=== PATIENT | female | born 1955 | race Caucasian/White ===

== ENCOUNTER 2020-08-16 07:27 | Outpatient (REF) | payer OTHER, SELFPAY ==
[2020-08-16 11:51] LABS: Alanine Aminotransferase 22 U/L (0-31); Aspartate Amino Transferase 18 U/L (5-31); Cholesterol 252 mg/dL; HDL Cholesterol 50 mg/dL; LDL Cholesterol Calculated 160 mg/dl; Triglycerides 213 mg/dL
[2020-08-16 12:16] LABS: Vitamin D 25-OH Total 78.1 ng/mL (>30)
== END 2020-08-16 07:28 | disposition home or self-care (01) ==
LOC: HO.HMGCLDS 07:27
PROVIDERS: PCP Internal Medicine; Visit Provider Internal Medicine
DX: E78.2 Mixed hyperlipidemia (principal); M85.852 Other specified disorders of bone density and structure, left thigh; E55.9 Vitamin D deficiency, unspecified; Z78.0 Asymptomatic menopausal state
CPT/HCPCS: 36415; 80061; 82306; 84450; 84460

== ENCOUNTER 2020-09-04 | Outpatient (REF) | payer OTHER, SELFPAY ==
[2020-09-05 16:13] LABS: CT PCR NOT DETECTED (Not Detect.); NG PCR NOT DETECTED (Not Detect.)
[2020-09-06 09:04] LABS: BV Int Neg Control Negative (Negative); BV Int Pos Control Positive (Positive)
== END 2020-09-04 00:01 | disposition home or self-care (01) ==
LOC: HO.LNP
PROVIDERS: Visit Provider Internal Medicine
DX: N39.0 Urinary tract infection, site not specified (principal); N76.0 Acute vaginitis; E89.40 Asymptomatic postprocedural ovarian failure
CPT/HCPCS: 87086; 87480; 87491; 87510; 87591; 87660

== ENCOUNTER 2020-10-16 09:36 | Outpatient (REF) | payer OTHER, SELFPAY ==
[2020-10-17 11:07] LABS: BV Int Neg Control Negative (Negative); BV Int Pos Control Positive (Positive)
== END 2020-10-16 09:37 | disposition home or self-care (01) ==
LOC: HO.LAB 09:36
PROVIDERS: PCP Internal Medicine; Visit Provider Obstetrics & Gynecology
DX: N89.8 Other specified noninflammatory disorders of vagina (principal); N95.8 Other specified menopausal and perimenopausal disorders
CPT/HCPCS: 87480; 87510; 87660

== ENCOUNTER 2025-04-25 10:01 | Outpatient (REF) | payer OTHER, SELFPAY ==
[2025-04-25 12:51] LABS: MANUAL DIFF FLAG NO
[2025-04-25 13:07] LABS: Hematocrit 41.1 % (37.0-47.0); Hemoglobin 13.7 g/dl (12.0-16.0); Imm Gran Abs Auto 0.02 X10*3/uL (0.00-0.03); Imm Gran Pct Auto 0.5 % (0.0-0.4); Lymphocytes Absolute Auto 0.8 X10*3/uL (1.2-4.9); Mean Corpuscular HGB Conc 33.3 g/dl (31.0-35.0); Mean Corpuscular Hemoglobin 29.0 pg (27.0-33.0); Mean Corpuscular Volume 87.1 fL (80.0-98.0); NRBC Abs Auto 0.000 X10*3/uL (0.0-0.012); NRBC Pct Auto 0.0 /100WBC (0.0-0.2); Platelet Count 165 X10*3/uL (160-400); Red Blood Count 4.72 X10*6/uL (4.20-5.50); White Blood Count 3.9 X10*3/uL (4.8-10.8)
[2025-04-25 13:32] LABS: Alanine Aminotransferase 23 U/L (0-31); Albumin Level 5.0 g/dL (3.5-5.0); Alkaline Phosphatase 76 U/L (39-117); Anion Gap 12 (12-20); Aspartate Amino Transferase 24 U/L (5-31); Blood Urea Nitrogen 11 mg/dL (9-16); Calcium 9.6 mg/dL (8.4-10.2); Carbon Dioxide 26 mmol/L (22-29); Chloride 107 mmol/L (96-108); Cholesterol 217 mg/dL (<200); Estimated Glomerular Filt Rate > 60; HDL Cholesterol 50 mg/dL (>40); Potassium 4.3 mmol/L (3.3-5.1); Sodium 141 mmol/L (135-145); Total Protein 6.6 g/dL (6.5-8.0); Triglycerides 134 mg/dL (<150)
[2025-04-25 13:52] LABS: Folate 9.4 ng/mL (> or = 4.0); Vitamin B12 332 pg/mL (200-900)
== END 2025-04-25 10:02 | disposition home or self-care (01) ==
LOC: HO.HMGCLDS 10:01
PROVIDERS: PCP Internal Medicine; Visit Provider Internal Medicine
DX: Z00.01 Encounter for general adult medical examination with abnormal findings (principal); E78.2 Mixed hyperlipidemia; E55.9 Vitamin D deficiency, unspecified; E89.40 Asymptomatic postprocedural ovarian failure; N95.2 Postmenopausal atrophic vaginitis; M85.852 Other specified disorders of bone density and structure, left thigh; E78.00 Pure hypercholesterolemia, unspecified; R53.82 Chronic fatigue, unspecified; Z71.89 Other specified counseling; F43.21 Adjustment disorder with depressed mood; Z63.4 Disappearance and death of family member; Z13.1 Encounter for screening for diabetes mellitus
CPT/HCPCS: 36415; 80053; 80061; 82306; 82607; 82746; 84443; 85025; 96127

== ENCOUNTER 2025-04-25 10:01 | Outpatient (AMB) | payer OTHER, SELFPAY ==
--- OUTSIDE RECORDS SUMMARY | 2025-03-15 04:15 | XMS_ITS ---
Author Organization [facility] Address [address] [place] [address] Care Team Providers Care Timing Inspector Name Role Phone Kiarra MARQUEZ, Renee Sharma Primary Care Provider Un available Black, Analia Unavailable [phone] Celia Montoya Unavailable [phone] Sarkar Encounters Encounter Location Date Provider Diagnosis [facility] [address] [place] [address] 03/15/2025 Celia Montoya Plan Of Treatment No Information Progress Notes * Nela HERNANDEZ MDOB: (70 yo F)Acc No.[id number]:03/15/2025 Progress Note Patient: Nela BELTRAN Provider: Franny Montoya DPM :1955 A ge:69 Y S ex:Female Date:03/15/2025 Address:[address] [place], [place] [id number] Pcp:Terese Rehman Subjective: * Chief Complaints: * [address] Sarkar. * Medical History: Objective: * Vitals: Assessment: Plan: * Treatment: * Images: * The named appointment provid er may or may not be the originator of this progress note, and it is not deemed complete until electronically signed by the appointment provider. Sign off status: Pending * Provider: Franny Montoya DPM Date: 1 Generated for Savanah méndez/Brad/Maddy on: 06/25/2024 11:27 AM EST
--- OUTSIDE RECORDS SUMMARY | 2025-04-05 04:30 | XMS_ITS ---
Author Organization [facility] Address [address] [place] [address] Care Team Providers Care Car Wrecker Name Role Phone Kiarar MARQUEZ, Renee Sharma Primary Care Provider Un available Black, Analia Unavailable [phone] Celia Montoya [phone] Encounters Encounter Location Date Provider Diagnosis [address] [address] 04/05/2025 Celia Montoya Plan Of Treatment No Information Progress Notes * Nela HERNANDEZ MDOB: (70 yo F)Acc No.[id number]:04/05/2025 Progress Note Patient: Laurence BELTRANela Terese Provider: Franny Montoya DPM :1955 A ge:69 Y S ex:Female Date:04/05/2025 Address:[address] [place], [place] [id number] Pcp:Terese Rehman Subjective: * Chief Complaints: * * Medical History: Objective: * Vitals: Assessment: Plan: * Treatment: * Images: * The named appointment provid er may or may not be the originator of this progress note, and it is not deemed complete until electronically signed by the appointment provider. Sign off status: Pending * Provider: Franny Montoya DPM Date: Generated for Delanoi dev/Brad/eTransmitting on: 06/25/2024 11:27 AM EST
--- NOTE | 2025-04-25 10:40 | A.OFFPC_ITS ---
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 Intake Note: Pt is here today to re-establish care/PE Pin Ticket Machine Operator Required: No Allergies Sulfa (Sulfonamide Antibiotics) (SULFA (SULFONAMIDE ANTIBIOTICS)) Allergy (Unknown, Verified 04/25/25 11:01) RASH ENVIRONMENTAL Allergy (Unknown, Uncoded 04/25/25 11:01) SINUS PROBLEMS Medication List - Last Reconciled 04/25/25 by Renee Plunkett MD No Known Home Meds Tobacco use date assessed: 04/25/25 Fall risk assessment: No Falls in past year Last assessed Fall Risk: 04/25/25 Dental Screening Dental Screen Date: 04/25/25 Did you have a dental visit in the last 12 months?: Yes Did you have a dental problem in the last 6 months where you did not have access to dental care?: No Was dental information given to patient?: Patient has dentist HPI 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 She has past medical history significant for mixed dyslipidemia and osteopenia of left femoral neck. The patient has a history of surgical menopause following a hysterectomy for endometriosis at age 29. She took Premarin for at least three years, but it was discontinued by a previous provider due to concerns about breast cancer risk. She now experiences significant vaginal dryness and discomfort, which has prevented intercourse since her surgery. She was previously prescribed a vaginal cream but found it painful to apply and has not been using it. She occasionally experiences hot flashes, but they are no longer a significant issue. The patient is due for several health screenings, including a mammogram, bone density scan, and colon cancer screening, all of which were last performed before the pandemic. Her last mammogram, over five years ago, found a benign mass. A previous bone density scan revealed osteopenia in her left hip. Her last colonoscopy was a long time ago, and the result was normal , per patient. Past medical history includes hypercholesterolemia noted on labs from 2020, though she is no longer taking cholesterol medication. She underwent sacrcolpopexy with Dr. Ricky Aceves at [facility] in October 2021. Family history is notable for diabetes in a maternal aunt. There is no immediate family history of colon cancer. Regarding social history, the patient suffered the loss of her only daughter, age 45, in December of this year. Her daughter, who had bipolar disorder, suddenly. The patient reports she is trying to deal with the grief and has been taking care of her 20-year-old granddaughter who now lives with her. [facility] Medical History (Updated 04/25/25 @ 11:08 by Renee Plunkett MD) Postmenopausal syndrome Genitourinary syndrome of menopause History of vitamin D deficiency Surgical menopause H/O bone density study Vitamin D deficiency Menopause Osteopenia of left femoral neck Mixed dyslipidemia Surgical History History of sacrocolpopexy History of total hysterectomy History of tonsillectomy History of laparoscopic cholecystectomy History of lumpectomy of right breast History of ankle surgery History of colonoscopy Family History Father History of thyroid cancer Cancer of prostate Hyperlipidemia Mother Depression HTN (hypertension) Hx of CABG Myocardial infarction Mental health disorder Daughter Mental health disorder Social History Housing: House Alcohol intake: never Patient Tobacco Use Status: Never used Tobacco e-Cigarette/Vaping Use: Never Used service: No Current occupational status: retired Sexual orientation: Straight/Heterosexual Gender identity: Female Cognitive needs: No Hearing needs: No Vision needs: Yes Female Reproductive History Menstrual Age of Menarche: 13 Menopause type: surgical Questionnaire PHQ-9 Over the last 2 weeks, how often have you been bothered by any of the following problems? 1. Little interest or pleasure in doing things: not at all 2. Feeling down, depressed, or hopeless: not at all 3. Trouble falling or staying asleep, or sleeping too much: several days 4. Feeling tired or having little energy: several days 5. Poor appetite or overeating: several days 6. Feeling bad about yourself - or that you are a failure or have let yourself or your family down: not at all 7. Trouble concentrating on things, such as reading the newspaper or watching television: not at all 8. Moving or speaking so slowly that other people could have noticed. Or the opposite - being so fidgety or restless that you have been moving around a lot more than usual: several days 9. Thoughts that you would be better off or of hurting yourself in some way: not at all Total score: 4 Depression Screening Interpretation: Negative Depression Screening Done: Yes 65942 - PHQ-9 Billing: Yes Source: Developed by Drs. Jomar Oscar, Janna Hines, Donavan Hernandez and colleagues, with an educational bryce from [employer]. Thrive Questionnaire Date Thrive assessed: 04/18/25 I am a: Patient What is your living situation today?: I have a steady place to live Within the past 12 months, did the food you bought not last and you didn't have the money to get more?: Never true Within the past 12 months, did you worry whether your food would run out before you got money to buy more?: Never true Do you have trouble paying for medicines?: No Do you have trouble getting transportation to medical appointments?: No Do you have trouble paying your heating and electricity bill?: No Do you have trouble taking care of your child, family member or friend?: No Do you have trouble with day-to-day activities such as bathing, preparing meals, shopping, managing finances, etc.?: No Are you currently unemployed and looking for a job?: No Are you interested in more education?: No Please select the resources that you would like help with: None Currently or been in a relationship where the following occur: No concerns reported THRIVE Score: 0 AUDIT C Alcohol Use Questionnaire (AUDIT-C) 1. How often do you have a drink containing alcohol?: Never Total Score: 0 Score Reviewed/Action Taken: Yes AALIYAH-7 AMB Questionnaire AALIYAH-7 Date AALIYAH - 7 assessed: 04/25/25 Feeling nervous, anxious, or on edge: 1 = Several days Not being able to stop or control worryin = Several days Worrying too much about different things: 1 = Several days Trouble relaxin = Not at all Being so restless that it is hard to sit still: 0 = Not at all Becoming easily annoyed or irritable: 0 = Not at all Feeling afraid as if something awful might happen: 1 = Several days Total AALIYAH-7 score (0-4 normal; 5-9 mild; 10-14 moderate; 15-21 severe): 4 Source: Developed by Drs. Jomar Oscar, Janna Hines, Donavan Hernandez and colleagues, with an educational bryce from [employer]. AALIYAH-7 Assessment Billing AALIYAH-7 Assessment Tool: AALIYAH-7 Assessment 31791 Review of Systems Const Denies body aches, Denies fever(s) and Denies headache(s) Eyes Details: sees [facility] Details: Goes to [facility] dental Denies dizziness and Denies headache(s) Card Denies chest pain, Denies lightheadedness, Denies palpitations and Denies dyspnea Resp Denies chest congestion, Denies cough, Denies dyspnea and Denies wheezing GI Denies abdominal pain, Denies change in bowel habits and Denies heartburn Denies urinary frequency, Denies difficulty voiding, Reports sexual dysfunction (Loss of libido) and Reports vaginal dryness Musc Denies myalgias, Denies arthralgias and Denies limited range of motion Skin/Breast Denies lesions and Denies rash Neuro Denies dizziness and Denies headache(s) Psych Reports no additional complaints Endo Denies palpitations Angel/Lymph Reports no additional complaints Aller/Immun Denies wheezing Physical exam (Primary Care) Vital Signs: Last Vital Signs Temp 98.1 F 04/25/25 10:41 Pulse 78 04/25/25 10:41 Resp 16 04/25/25 10:41 BP 130/80 04/25/25 10:41 Pulse Ox 98 04/25/25 10:41 Oxygen Delivery Method Room Air 04/25/25 10:41 BMI result Body Mass Index 27.1 Tobacco/Smoking Status: Tobacco use Status Tobacco use date assessed 04/25/25 04/25/25 10:50 Patient Tobacco Use Status Never used Tobacco 04/25/25 10:50 e-Cigarette/Vaping Use Never Used 04/25/25 10:50 PHQ-9: PHQ-9 Score PHQ-9: Total score 4 04/30/25 22:22 Depression Screening Interpretation: Negative Thrive Assessment: Date of Thrive Assessment Date Thrive assessed 04/18/25 04/25/25 10:42 Currently or been in a relationship where the following occur: No concerns reported Advance Care Planning discussion: Completed/Scanned Date of discussion: 04/25/25 Who was present: patient Forms completed: Health Care Proxy Time spent: 16-45 minutes Actual minutes spent: 2 Const General: no acute distress and alert Orientation/consciousness: patient oriented x3 [facility] Head: Yes normocephalic Ears: external ears normal, TM's normal bilaterally and EAC's normal General nose exam: Normal external nose present Face and sinus: Yes face symmetric Mouth: Normal oral and palatal mucosa present and moist mucous membranes Eyes General: appearance normal, both eyes and all related structures Eyelids: Yes eyelids normal Conjunctivae: conjunctivae normal Sclerae: sclerae normal Pupils: Equal, round and reactive pupils present EOM: EOMs intact bilaterally Neck Neck: Yes full ROM, Yes no lymphadenopathy and Yes supple Thyroid: Thyroid normal Chest Chest palpation & inspection: normal inspection of the chest Breast/axilla palpation: normal palpation of the breasts Resp Effort & Inspection: normal respiratory effort and able to speak in complete s entences Auscultation: clear to auscultation bilaterally Cardio Rate: regular rate Rhythm: regular rhythm Heart sounds: S1 normal heart sound present and S2 normal heart sound present GI Palpation (GI): Soft to palpation, nontender, no guarding and no masses Auscultation: normal bowel sounds General: Yes no CVA tenderness Back/Spine/Pelvis Back: no CVA tenderness and No back tenderness Skin General skin exam: no rashes or lesions noted Neuro General: patient oriented x3, gait normal, moves all extremities, Normal light touch and pain sensation and no focal motor deficits Cranial nerves: Yes Equal, round and reactive pupils present Cognition (Neuro): normal cognition Gait exam (Neuro): Normal gait present Motor exam (neuro): 5/5 motor strength present throughout Extrem General: Yes normal to inspection, Yes full ROM, Yes no joint enlargement, Yes no pedal edema and Yes normal gait Psych Appearance: grossly normal and well kempt Mental Status: mental status grossly normal Speech and movement: Normal speech and movement present Affect: normal affect Coding Level of Care Code Est Pt Prev Care >65y(54441) Diagnoses Annual visit for general adult medical examination with abnormal findings Z00.01 Osteopenia of left femoral neck M85.852 Postmenopausal atrophic vaginitis N95.2 Mixed dyslipidemia E78.2 Chronic fatigue R53.82 Fatigue type: chronic, unspecified Advance directive discussed with patient Z71.89 Grief at loss of child F43.21; Z63.4 Additional Codes AALIYAH-7 Assessment Billing - AALIYAH-7 Assessment Tool: AALIYAH-7 Assessment 25706 ([id number]) PHQ-9 - 70872 - PHQ-9 Billing: Yes ([id number]) Vital Signs *Quality* - Advance Care Planning discussion: Completed/Scanned ([id number]) Vital Signs *Quality* - Time spent: 16-45 minutes ([id number]) Assessment & Plan Assessment & Plan (1) Annual visit for general adult medical examination with abnormal findings: Code(s): Z00.01 - Encounter for general adult medical examination with abnormal findings Plan: She is overdue for multiple screenings. Breast Cancer Screening: A mammogram has been ordered. The patient was advised to schedule it at either [facility] or [facility], depending on insurance coverage, and to avoid deodorant on the day of the exam. Osteoporosis Screening: A bone density scan (DEXA) has been ordered to be performed at the same time as the mammogram to re-evaluate her known osteopenia of the left hip. Colon Cancer Screening: As her last colonoscopy was a long time ago, a Cologuard test has been ordered. The patient was instructed on the collection process and informed that a positive result would necessitate a follow-up colonoscopy. Immunizations: The patient has a history of the old pneumonia shot. She was administered Prevnar 20 in-office today due to her susceptibility to pneumonia. The flu shot was recommended, given at pharmacy Vision/Dental/Skin: Recommended a comprehensive dilated eye exam with an sap crm developer for reading and night vision issues. Recommended a skin cancer screening with a body shop supervisor. Patient confirms she sees a dentist regularly. (2) Osteopenia of left femoral neck: Code(s): M85.852 - Other specified disorders of bone density and structure, left thigh Category: Medical Plan: Bone Density scan ordered. Reinforced importance of doing regular weight- bearing exercise, take adequate calcium from dietary sources and start taking [id number] vitamin D3 at 2000 units daily. Vitamin-D level also ordered (3) Postmenopausal atrophic vaginitis: Code(s): N95.2 - Postmenopausal atrophic vaginitis Plan: reports severe vaginal dryness and dyspareunia. She had a hysterectomy at age 29. Previous use of a vaginal cream was unsuccessful due to pain on application. Given her age and history of a breast mass, systemic hormone therapy is not recommended at this time. A referral has been sent to [facility] PERFECT BINDER FEEDER OFFBEARER at the [facility] for further evaluation and management. The patient was advised to confirm her insurance coverage with [employer] [facility] for this referral. (4) Mixed dyslipidemia: Code(s): E78.2 - Mixed hyperlipidemia Category: Medical Plan: has a history of high cholesterol but is, currently not on medication. A lipid panel is included in today's blood work to re-evaluate her status and determine the need for pharmacotherapy. (5) Fatigue: Code(s): R53.83 - Other fatigue Qualifiers: Fatigue type: chronic, unspecified Qualified Code(s): R53.82 - Chronic fatigue, unspecified Plan: The patient reports significant fatigue. The differential includes anemia, thyroid dysfunction, and vitamin deficiencies. Plan to order comprehensive blood work including a CBC, TSH, vitamin B12, and vitamin D levels to investigate potential underlying causes. (6) Advance directive discussed with patient: Code(s): Z71.89 - Other specified counseling Plan: Initiated the conversation about Advanced Directives. Advanced Directives help patients prepare for current and future decisions about their medical treatment and place of care. Discussed with patient that it is a process where a patients current condition and prognosis are reviewed, their wishes for information regarding their illness are elicited, and likely medical dilemmas are presented and options discussed. Healthcare proxy form completed today. The form can be amended as needed, reviewed yearly and make changes as needed (7) Grief at loss of child: Code(s): F43.21 - Adjustment disorder with depressed mood; Z63.4 - Disappearance and of family member Plan: The patient recently experienced the sudden of her adult daughter. She is coping and denies needing therapy at this time. Offered support and resources if she changes her mind. Orders: Orders XR DEXA axial skeleton 04/25/25 E89.40 - Asymptomatic postprocedural ovarian failure, M85.852 - Other specified disorders of bone density and structure, left thigh, Z12.31 - Encounter for screening mammogram for malignant neoplasm of breast MM tomosynthesis screening BI 04/25/25 E89.40 - Asymptomatic postprocedural ovarian failure, M85.852 - Other specified disorders of bone density and structure, left thigh, Z12.31 - Encounter for screening mammogram for malignant neoplasm of breast Lipid Panel 04/25/25 E55.9 - Vitamin D deficiency, unspecified, E78.2 - Mixed hyperlipidemia, E89.40 - Asymptomatic postprocedural ovarian failure, M85.852 - Other specified disorders of bone density and structure, left thigh, R53.83 - Other fatigue, Z13.1 - Encounter for screening for diabetes mellitus Complete Blood Count Auto Diff 04/25/25 E55.9 - Vitamin D deficiency, unspecified, E78.2 - Mixed hyperlipidemia, E89.40 - Asymptomatic postprocedural ovarian failure, M85.852 - Other specified disorders of bone density and structure, left thigh, R53.83 - Other fatigue, Z13.1 - Encounter for screening for diabetes mellitus TSH reflex Free T4 04/25/25 E55.9 - Vitamin D deficiency, unspecified, E78.2 - Mixed hyperlipidemia, E89.40 - Asymptomatic postprocedural ovarian failure, M85.852 - Other specified disorders of bone density and structure, left thigh, R53.83 - Other fatigue, Z13.1 - Encounter for screening for diabetes mellitus Comprehensive [place]. Panel Fast 04/25/25 E55.9 - Vitamin D deficiency, unspecified, E78.2 - Mixed hyperlipidemia, E89.40 - Asymptomatic postprocedural ovarian failure, M85.852 - Other specified disorders of bone density and structure, left thigh, R53.83 - Other fatigue, Z13.1 - Encounter for screening for diabetes mellitus Vitamin B12 and Folate 04/25/25 E55.9 - Vitamin D deficiency, unspecified, E78.2 - Mixed hyperlipidemia, E89.40 - Asymptomatic postprocedural ovarian failure, M85.852 - Other specified disorders of bone density and structure, left thigh, R53.83 - Other fatigue, Z13.1 - Encounter for screening for diabetes mellitus Vitamin D 25-OH Total 04/25/25 E55.9 - Vitamin D deficiency, unspecified, E78.2 - Mixed hyperlipidemia, E89.40 - Asymptomatic postprocedural ovarian failure, M85.852 - Other specified disorders of bone density and structure, left thigh, R53.83 - Other fatigue, Z13.1 - Encounter for screening for diabetes mellitus Referrals PERFECT BINDER FEEDER OFFBEARER Referral E89.40 - Asymptomatic postprocedural ovarian failure, N95.2 - Postmenopausal atrophic vaginitis Cologuard Test Z12.11 - Encounter for screening for malignant neoplasm of colon, Z12.12 - Encounter for screening for malignant neoplasm of rectum
[2025-04-25 10:41] VITALS: BP 130/80; PULSE 78; RESP 16; TEMP 36.7; O2SAT 98; BMI 27.1
--- OUTSIDE RECORDS SUMMARY | 2025-04-25 11:27 | XMS_ITS | Patient Health Record ---
[facility] Address [address] [facility] [place] [address] Care Team Providers Care Bus Mechanic Name Role Phone Kiarra MARQUEZ, Renee Sharma Primary Care Provider Un available Analia Banda Unavailable [phone] Celia Montoya Unavailable [phone] Allergies Allergen (clinical drug ingredient) Drug/Non Drug Allergy documented on EMR Reaction Allergy Type Onset Date Status sulfamethoxazole / trimethoprim Bactrim rash Drug Allergy Active Lamisil diarrhea Drug Allergy Active Reason For Referral No Information Medications Medication SIG (Take, Route, Frequency, Duration) Notes Start Date End Date Status LamISIL 250 MG 1 tablet Orally Once a day for 7days stop for 3 weeks repeat cycle; Duration: 90 days 03/16/2019 Not-Taking Symbicort 80-4.5 MCG/ACT Inhalation Not-Taking Vitamin D (Ergocalciferol) 1.25 MG (15124 UT) 1 capsule Orally; Duration: 30 day(s) Not-Taking Immunizations Vaccine Route Administration Date Status Comme nts Influenza Unknown 12/12/2024 Refused Social History Tobacco Use: Social History Observation Description Date Details (start date - stop date) Never Smoker NA - NA Tobacco Use/Smoking Question Answer Notes Are you a: nonsmoker Additional Findings: Tobacco Non-User Current no n-smoker Alcohol Screen Question Answer Notes Did you have a drink containing alcohol in the p ast year? No Points 0 Interpretation Negative Tobacco use other than smoking: Question Answer Notes Are you an other tobacco user? No Problems Problem Type SNOMED Code ICD Code Onset Dates Problem Status W/U Status Risk Notes Problem Plantar wart (50326768) Plantar wart (B07.0) Active confirmed Vital Signs Blood pressure diastolic 90 mm Hg 12/12/2024 Height 64 in 12/12/2024 Blood pressure systolic 145 mm Hg 12/12/2024 Weight 165 lbs 12/12/2024 BMI 28.32 kg/m2 12/12/2024 Procedures Procedure Date Ordered Date Performed Result Body Sit e 62457-Ewpn Destruction, 1-14 12/12/2024 N/A Encounters Encounter Location Date Provider Diagnosis [facility] [address] 12/12/2024 Celia Montoya Right foot pain M79.671 ; Tailor's bunion of right foot M21.621 ; Pain in right foot M79.671 ; Pain in right ankle and joints of right foot M25.571 and Bursitis of right foot M77.[address] [address] 12/13/2024 [facility] [address] [address] 03/07/2025 Celia Montoya Assessments Encounter Date Diagnosis (ICD Code) Assessment Notes Treatment Notes Treatment Clinical Notes Section Notes 12/12/2024 Right foot pain (ICD-10 - M79.671) 12/12/2024 Tailor's bunion of right foot (ICD-10 - M21.621) 12/12/2024 Pain in right foot (ICD-10 - M79.671) 12/12/2024 Pain in right ankle and joints of right foot (ICD-10 - M25.571) 12/12/2024 Bursitis of right foot (ICD-10 - M77.51) Plan Of Treatment Pending Test Test Name Order Date *Liver Function Test (LFT) 03/14/2019 X ray : Foot, right 3V 12/12/2024 [id number] NAIL, 1-5 01/01/2023 22541-Spez Destruction, 1-14 01/01/2023 34996-Zdfk Destruction, 1-14 12/12/2024 72613-Fjke Destruction, 1-14 04/19/2020 78727-Khzlxivo Plate 03/14/2019 Insurance Providers Payer Name Payer Address Payer Phone Subscriber Number Group Number Insured Name Patient Relationship to Insured Coverage Start Date Coverage End Date [employer] [address] Fredy sanchez, [place] [phone] [phone] [id number] Nela Victoria Self - patient is the insured Medical (General) History Medical History History ICD Code Arthritis Gall bladder problems Headaches/Migraines Sinus conditions Measles Chicken pox Surgical History Surgery Date(Month/Year) tonsils 1960's hysterectomy disc in neck 3356-8907 gall bladder 2017 right breast mass 2018 right ankle surgery 10/2018 prolapse bladder surgery 2022
--- OUTSIDE RECORDS SUMMARY | 2025-04-25 11:27 | XMS_ITS | Data Portability ---
Author Organization [facility] Address [address] [place] [address] Assessment No assessment recorded. Plan of Treatment Reminders Order Date Submit Date Provider Last Modified By Organization Details Last Modified Time Details Appointments None recorded. Lab None recorded. Referral None recorded. Procedures None recorded. Surgeries None recorded. Imaging None recorded. Medication Orders prednisone 20 mg tablet 2023 [place] [id number], [address], [place], [id number], 4 08:55:29 diclofenac sodium 50 mg tablet,shena yed release 2023 [place] [id number], [address], [place], [id number], 4 08:55:29 cyclobenzap rine 10 mg tablet 2023 [place] [id number], [address], [place], [phone], 4 08:55:27 Patient TargetsNo targets recorded. Patient InstructionsNo instructions recorded. Reason for Referral None Reported. Medical Equipment None Reported. Allergies Allergen ID Allergen Name Allergen Category Reaction Reaction Severity Criticality Documentation Date Start Date Code Code System Note Provider Name and Address Organization Details Recorded Time 146971 Substance with sulfonami de structure and antibacte rial mechanism of action (substanc e) medicatio n rash Not available Not available 03/25/2024 79037 8003 SNOMED Jaleel caputo, [facility] 4 08:30:10 Medications Name Sig Start Date Stop Date Status Note LastModified by Organization Details LastModified Time cyclobenzaprine 10 mg tablet Take 1 tablet every 8 hours by oral route as needed for 7 days. 2023 active Not Available Not Available Not Avai lable prednisone 20 mg tablet Take 2 tablets every day by oral route for 4 days. 2023 active Not Available Not Available Not Avai lable diclofenac sodium 50 mg tablet,delayed release Take 1 tablet every 12 hours by oral route as needed for 7 days. 2023 active Not Available Not Available Not Avai lable Vitals Date Recorded Body weight Body mass index (BMI) Body height Respiratory rate Body temperature Heart rate Oxygen saturation Oxygen saturation in Arterial blood by Pulse oximetry Systolic And Diastolic Systolic And Diastolic Provider Name and Address Organization Details Last Updated DateTime 12524.5 9 g 27.1 kg/m2 162.56 cm 16 /min 99 [degF] 86 /min 100 % 100 % 168/84 mm[Hg] 180/89 mm[Hg] Jaleel Grullon RN [facility] 08:34:15 Social History Question Answer Notes LastModified by iNeed Details LastModified Time Tobacco Smoking Status Never Smoker Jaleel Grullon RN [facility] 03/25/2024 08:30:36 What Was The Date Of Your Most Recent Tobacco Screening? 03/25/2024 Information not available 03/25/2024 Has Tobacco Cessation Counseling Been Provided? No Information not available 03/25/2024 Sex: Unknown Functional Status Question Answer Note LastModified by iNeed Details LastModified Time Do you use any illicit or recreational drugs? No Information not available 03/25/2024 Do you or have you ever used any other forms of tobacco or nicotine? No Information not available 03/25/2024 What is your level of alcohol consumption? None Information not available 03/25/2024 Mental Status None recorded. Family History Nothing Reported. Medical History Condition Response Communication Need N Gynecological HistoryNo gynecological history recorded. Obstetrics History GPAL:G 0 P 0 0 0 0 Past Encounters Encounter ID Performer Location Encounter Start Date Encounter Closed Date Diagnosis/Indication Diagnosis SNOMED-CT Code Diagnosis ICD10 Code Diagnosis IMO Codes Diagnosis Note [id number] Serafin Talbot MD [facility] [address] [facility] [place] [address] 03/25/2024 08:16:55 03/25/2024 08:58:24 Low back pain [id number] M54.50 Back pain seems mostly muscular but L leg pain could be muscular +/- sciatica vs. lumbar radiculopa thy, nothing acutely concerning today. Advised rest, heat to area, start short course of pred, regular diclofenac , flexeril as needed but discussed drowsy SE. Encouraged to f/u with chiropract or back home if not improving next week. RTC if sxs persist or worsen. Left side sciatica 86483 73738 69699 M54.32 Health Concerns Section Related Observation LastModified by Organization Detai ls LastModified Time None Recorded Concern Status LastModified by Organization Details LastModified Time None Recorded Advance Directives Directive None Recorded Payers Insurance Date Sequence Insurance Name Policy Number Policy Smalls Covered Member ID Smalls Member ID Guarantor Name 09/06/2024 1 BHARATHI [id number] Nela Victoria [id number] Nela Victoria Notes Date Note Type Note Provider Name and Address Organization Details Recorded Time 03/25/2024 text/html ROS as noted in the HPI Pt is here in [facility] today for left leg and lower back pain. Pt reports about a week ago she was lifting a heavy object when pain first started. Since then pain has increased. OTC advil a week ago was lifting bags of top soils, thinks pulled muscle in back of leg, was painful in back of thigh and calf for a few days. took ibuprofen and it went away. 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 Never had this before.In L calf feels a bit tingly and numb she states. Walking ok but sore to get up and down, walking a little limpy she states but back feels better when up moving. normal bowel and bladder function, no saddle anesthesiano hx stomach ulcers/GI bleeding, reports normal kidney function, not on blood thinnershere until Wednesday 03/28 then back home to [place], [facility] [address], [place], [address], [facility] 03/25/2024 09:00:13 OBGyn Episode No OBEpisode recorded.
--- OUTSIDE RECORDS SUMMARY | 2025-04-25 11:27 | XMS_ITS | Data Portability ---
Author Organization DEVIN Cast s, [address] Address [address] [place] [address] Care Team Providers Care Licensed Physical Therapist Name Role Phone [facility] Primary Care Provider Assessment No assessment recorded. Plan of Treatment Reminders Order Date Submit Date Provider Last Modified By Organization Details Last Modified Time Details Appointments None recorded. Lab culture, urine 2022 023 [facility], [address] [place] [address], [phone], 3 06:08:11 urinalysis, dipstick 2022 023 [email or web address] _[facility], [address] [place] [address], [phone], 3 11:07:51 urinalysis, dipstick 2022 023 [email or web address] _[facility], [address] [place] [address], [phone], 3 11:31:36 culture, urine 2022 023 [facility], [address] [place] [address], [address], 3 06:07:12 Referral None recorded. Procedures None recorded. Surgeries None recorded. Imaging None recorded. Medication Orders Augmentin 875 mg-125 mg tablet 2022 023 [facility]/Pharmacy #[id number], [address] [place], [address], 3 11:07:53 cefuroxime axetil 500 mg tablet 2022 023 [email or web address] [facility]/Pharmacy #[id number], [address] [place], [address], 3 09:49:22 Patient TargetsNo targets recorded. Patient Instructions Encounter Date Encounter Id Patient Instructions Last Modified By Organization Details Last Modified Time 07/02/2022 [id number] urinary tract infection in women information [email or web address] Not available 07/02/2022 11:31:36 You are going to be treated for a Urinary Tract Infection. The following are recommendations to help with your symptoms and recovery: 1. Drink Plenty of fluids - Stay hydrated 2. Finish full antibiotic course 3. I recommend starting a Probiotic - I recommend Florastor 4. If you take Azo - this will help the burning and urgency feeling - just be aware it will turn your urine bright yellow. I would not hesitate to be seen again if you develop: 1. Severe Back Pain 2. Abdominal Pain 3. Nausea and Vomiting 4. Vaginal Discharge or Bleeding 5. Fever > 101.0 You symptoms should improve within 72 hours for a typically UTI. If a urine culture was sent out to the lab for you we should get the results back within 4 days. This will be able to prove that your symptoms are caused by a UTI and it will also verify that the correct antibiotic was prescribed. You blood pressure was elevated during your visit with us and you do not have a history of Hypertension or taking blood pressure medications currently. This is important to monitor and address with your PCP. Undiagnosed hypertension that remains untreated can lead to: 1. Kidney Failure 2. Stroke 3. Congestive Heart Failure. Please get a blood pressure cuff and keep a journal of your daily blood pressure. Once in the AM and Once in a PM. Please schedule an appointment with your Primary Care Doctor to discuss the results of your journal. Thank you for using [facility] - please don't hesitate to call our office if you have any questions or concerns. [email or web address] Not available 07/02/2022 11:07:55 10/08/2022 [id number] kidney stone: ca re instructions [email or web address] Not available 10/08/2022 11:08:17 Female Urinary Tract Infection (UTI): Care Instructions [email or web address] Not available 10/08/2022 11:08:17 You have been advised to go now to the Emergency Department for further evaluation of right flank pain with radiation to the right lower abdomen with signs of a possible urinary tract infection. You also have diffuse abdominal tenderness which is worse in the right lower abdomen. You have been advised that you should have imaging to rule out an obstructing/infecte d renal stone, pyelonephritis (kidney infection) or other intra-abdominal infection such as appendicitis or diverticulitis. You also have petechial skin lesions which you report are chronic but may indicate a problem with your platelets .You have elected not to follow this advice and prefer to follow-up tomorrow with your urologist. You have been advised of the potential adverse consequences of this decision including but not limited to uncontrolled pain, sepsis, kidney failure, peritonitis, permanent disability and . You are competent to make this decision. You are encouraged to change your mind and go to the Emergency Department after leaving [facility]. Take the antibiotic as prescribed. See printed instructions. Follow-up as soon as possible with your doctor. Not available 10/08/2022 11:13:14 Reason for Referral None Reported. Results Created Date Observation Date Name Description Value Unit Range Abnormal Flag Note LastModifiedBy Organization Detail LastModifiedTime 07/02/1907/04/2022 URINE CULTU RE, ROUTI NE urine culture, routine FINAL REPORT Not Available [facility] ([facility]) [address] [place], [address], 07/04/2022 06:07:11 07/02/19 23 07/04/2022 URINE CULTU RE, ROUTI NE result 1 COMMEN T Cultu re shows less than 10,00 0 colon y formi ng units of bacte eldon per med liter of urine . This colon y count is not gener ally consi dered to be clini leticia signi ficalyssa t. Not Available [facility] ([facility]) [address] [place], [address], 07/04/2022 06:07:11 07/02/19 23 07/02/2022 urina lysis , dipst ick Unknown Analyte Normal = light yellow Not Available 2099talya [place] [address], [place], [address], 07/02/2022 10:43:31 07/02/19 23 07/02/2022 urina lysis , dipst ick Unknown Analyte Normal = clear Not Available 2099talya [place] [address], [place], [address], 07/02/2022 10:43:31 07/02/19 23 07/02/2022 urina lysis , dipst ick Unknown Analyte Normal = negati ve Not Available 2099talya [place] [address], [place], [address], 07/02/2022 10:43:31 07/02/19 23 07/02/2022 urina lysis , dipst ick Unknown Analyte Normal = Negati ve Not Available 2099talya [place] [address], [place], [address], 07/02/2022 10:43:31 07/02/19 23 07/02/2022 urina lysis , dipst ick Unknown Analyte Normal = Negati ve Not Available 2099talya [place] [address], [place], [address], 07/02/2022 10:43:31 07/02/19 23 07/02/2022 urina lysis , dipst ick Unknown Analyte Normal = 1.010, 1.015, 1.020 Not Available 2099talya [place] [address], [place], [address], 07/02/2022 10:43:31 07/02/19 23 07/02/2022 urina lysis , dipst ick Unknown Analyte Normal = Negati ve Not Available 2099talya [place] [address], [place], [address], 07/02/2022 10:43:31 07/02/19 23 07/02/2022 urina lysis , dipst ick Unknown Analyte Normal = 6.5, 7.0, 7.5, 8.0 Not Available [facility] [place] [address], [place], [address], 07/02/2022 10:43:31 07/02/19 23 07/02/2022 urina lysis , dipst ick Unknown Analyte Normal = Negati ve Not Available [address] [place] [address], [place], [address], 07/02/2022 10:43:31 07/02/19 23 07/02/2022 urina lysis , dipst ick Unknown Analyte Normal = 0.2, 1.0 Not Available [address] [place] [address], [place], [address], 07/02/2022 10:43:31 07/02/19 23 07/02/2022 urina lysis , dipst ick Unknown Analyte Normal = Negati ve Not Available [address] [place] [address], [place], [address], 07/02/2022 10:43:31 07/02/19 23 07/02/2022 urina lysis , dipst ick Unknown Analyte Normal = Negati ve Not Available [address], [place], [address], 07/02/2022 10:43:31 07/02/19 23 07/02/2022 urina lysis , dipst ick Unknown Analyte Yellow Not Available [address] [place] [address], [place], [address], 07/02/2022 10:43:31 07/02/19 23 07/02/2022 urina lysis , dipst ick Unknown Analyte Clear Not Available mitra [address], [place], [address], 07/02/2022 10:43:31 07/02/19 23 07/02/2022 urina lysis , dipst ick Unknown Analyte Negati ve Not Available talya [address], [place], [address], 07/02/2022 10:43:31 07/02/19 23 07/02/2022 urina lysis , dipst ick Unknown Analyte Negati ve Not Available talya [place] [address], [place], [address], 07/02/2022 10:43:31 07/02/19 23 07/02/2022 urina lysis , dipst ick Unknown Analyte Negati ve Not Available talya [place] [address], [place], [address], 07/02/2022 10:43:31 07/02/19 23 07/02/2022 urina lysis , dipst ick Unknown Analyte 1.015 Not Available mitra [address], [place], [address], 07/02/2022 10:43:31 07/02/19 23 07/02/2022 urina lysis , dipst ick Unknown Analyte Trace- lysed Not Available talya [place] [address], [place], [address], 07/02/2022 10:43:31 07/02/19 23 07/02/2022 urina lysis , dipst ick Unknown Analyte 6.5 Not Available [address]ess[address], [place], [address], 07/02/2022 10:43:31 07/02/19 23 07/02/2022 urina lysis , dipst ick Unknown Analyte Negati ve Not Available 20[address]talya [place] [address], [place], [address], 07/02/2022 10:43:31 07/02/19 23 07/02/2022 urina lysis , dipst ick Unknown Analyte 0.2 E.U./d L Not Available 20[address]talya [address], [place], [address], 07/02/2022 10:43:31 07/02/19 23 07/02/2022 urina lysis , dipst ick Unknown Analyte Negati ve Not Available [address] [place] [address], [place], [address], 07/02/2022 10:43:31 07/02/19 23 07/02/2022 urina lysis , dipst ick Unknown Analyte Small Not Available [address] [place] [address], [place], [address], 07/02/2022 10:43:31 10/09/19 23 10/10/2022 URINE CULTU RE, ROUTI NE urine culture, routine FINAL REPORT Not Available [facility] ([facility]) [address] [place], [address], 10/10/2022 06:08:11 10/09/19 23 10/10/2022 URINE CULTU RE, ROUTI NE result 1 COMMEN T Cultu re shows less than 10,00 0 colon y formi ng units of bacte eldon per med liter of urine . This colon y count is not gener ally consi dered to be clini leticia signi fican t. Not Available [facility] ([facility]) [address] [place], [address], 10/10/2022 06:08:11 10/09/19 23 10/08/2022 urina lysis , dipst ick Unknown Analyte Normal = light yellow Not Available talya [place] [address], [place], [address], 10/08/2022 10:01:18 10/09/19 23 10/08/2022 urina lysis , dipst ick Unknown Analyte Yellow Not Available [facility] [address], [place], [address], 10/08/2022 10:01:18 10/09/19 23 10/08/2022 urina lysis , dipst ick Unknown Analyte Normal = clear Not Available talya [place] [address], [place], [address], 10/08/2022 10:01:18 10/09/19 23 10/08/2022 urina lysis , dipst ick Unknown Analyte Slight ly Cloudy Not Available talya [place] [address], [place], [phone], 10/08/2022 10:01:18 10/09/19 23 10/08/2022 urina lysis , dipst ick Unknown Analyte Normal = negati ve Not Available talya [place] [address], [place], [address], 10/08/2022 10:01:18 10/09/19 23 10/08/2022 urina lysis , dipst ick Unknown Analyte Negati ve Not Available talya [place] [address], [place], [address], 10/08/2022 10:01:18 10/09/19 23 10/08/2022 urina lysis , dipst ick Unknown Analyte Normal = Negati ve Not Available talya [place] [address], [place], [address], 10/08/2022 10:01:18 10/09/19 23 10/08/2022 urina lysis , dipst ick Unknown Analyte Negati ve Not Available talya [place] [address], [place], [address], 10/08/2022 10:01:18 10/09/19 23 10/08/2022 urina lysis , dipst ick Unknown Analyte Normal = Negati ve Not Available talya [place] [address], [place], [address], 10/08/2022 10:01:18 10/09/19 23 10/08/2022 urina lysis , dipst ick Unknown Analyte Negati ve Not Available talya [place] [address], [place], [address], 10/08/2022 10:01:18 10/09/19 23 10/08/2022 urina lysis , dipst ick Unknown Analyte Normal = 1.010, 1.015, 1.020 Not Available talya [place] [address], [place], [place], [address], 10/08/2022 10:01:18 10/09/19 23 10/08/2022 urina lysis , dipst ick Unknown Analyte 1.015 Not Available [address], [place], [place], [address], 10/08/2022 10:01:18 10/09/19 23 10/08/2022 urina lysis , dipst ick Unknown Analyte Normal = Negati ve Not Available talya [address], [place], [place], [address], 10/08/2022 10:01:18 10/09/19 23 10/08/2022 urina lysis , dipst ick Unknown Analyte Small Not Available [address], [place], [address], 10/08/2022 10:01:18 10/09/19 23 10/08/2022 urina lysis , dipst ick Unknown Analyte Normal = 6.5, 7.0, 7.5, 8.0 Not Available [address] [place] [address], [place], [address], 10/08/2022 10:01:18 10/09/19 23 10/08/2022 urina lysis , dipst ick Unknown Analyte 6.0 Not Available [address], [place], [address], 10/08/2022 10:01:18 10/09/19 23 10/08/2022 urina lysis , dipst ick Unknown Analyte Normal = Negati ve Not Available [address], [place], [address], 10/08/2022 10:01:18 10/09/19 23 10/08/2022 urina lysis , dipst ick Unknown Analyte Negati ve Not Available [address] [place] [address], [place], [address], 10/08/2022 10:01:18 10/09/19 23 10/08/2022 urina lysis , dipst ick Unknown Analyte Normal = 0.2, 1.0 Not Available [address], [place], [address], 10/08/2022 10:01:18 10/09/19 23 10/08/2022 urina lysis , dipst ick Unknown Analyte 0.2 E.U./d L Not Available [address] [place] [address], [place], [address], 10/08/2022 10:01:18 10/09/19 23 10/08/2022 urina lysis , dipst ick Unknown Analyte Normal = Negati ve Not Available [address]talya [place] [address] [place], [address], 10/08/2022 10:01:18 10/09/19 23 10/08/2022 urina lysis , dipst ick Unknown Analyte Negati ve Not Available [address]talya [place] [address] [place], [address], 10/08/2022 10:01:18 10/09/19 23 10/08/2022 urina lysis , dipst ick Unknown Analyte Normal = Negati ve Not Available [address]talya [place] [address] [place], [address], 10/08/2022 10:01:18 10/09/19 23 10/08/2022 urina lysis , dipst ick Unknown Analyte Small Not Available [facility] mitra [address] [place], [address], 10/08/2022 10:01:18 Result Notes None recorded. Problems No Known Problems Medical Equipment None Reported. Allergies Allergen ID Allergen Name Allergen Category Reaction Reaction Severity Criticality Documentation Date Start Date Code Code System Note Provider Name and Address Organization Details Recorded Time 553775 Substance with sulfonami de structure and antibacte rial mechanism of action (substanc e) medicatio n rash Not available Not available 07/02/2022 [id number] SNOMED DEVIN Granados [facility] 10:45:15 Medications Name Sig Start Date Stop Date Status Note LastModified by Organization Details LastModified Time Augmentin 875 mg-125 mg tablet Take 1 tablet every 12 hours by oral route for 7 days. 2022 active Not Available Not Available Not Avai lable oxybutynin chloride ER 10 mg tablet,exte nded release 24 hr TAKE 1 TABLET BY MOUTH EVERY DAY 10/08 completed Not Available Not Available Not Available ciprofloxac in 500 mg tablet TAKE 1 TABLET BY MOUTH TWICE A DAY 10/08 completed Not Available Not Available Not Available tramadol 50 mg tablet TAKE 1 TABLET BY MOUTH EVERY 4 TO 6 HOURS NEEDED FOR POST OPERATIVE PAIN 10/08 completed Not Available Not Available Not Available cephalexin 500 mg capsule TAKE 1 CAPSULE BY MOUTH THREE TIMES A DAY 10/08 completed Not Available Not Available Not Available docusate sodium 100 mg capsule TAKE 1 CAPSULE BY MOUTH TWICE A DAY 10/08 completed Not Available Not Available Not Available bisacodyl 5 mg tablet,shena yed release TAKE 1 TABLET BY MOUTH ONCE DAILY 10/08 completed Not Available Not Available Not Available cefuroxime axetil 500 mg tablet TAKE 1 TABLET BY MOUTH TWICE A DAY FOR 5 DAYS 10/08 completed Not Available Not Available Not Available Vitals Date Recorded Body height Body mass index (BMI) Body weight Pain severity - 0-10 verbal numeric rating [Score] - Reported Oxygen saturation Oxygen saturation in Arterial blood by Pulse oximetry Heart rate Respiratory rate Body temperature Systolic And Diastolic Provider Name and Address Organization Details Last Updated DateTime 3 162.56 cm 26.6 kg/m2 91842.8 2 g 6 100 % 100 % 70 /min 16 /min 97.7 [degF] 167/69 mm[Hg] TITO HWANG PA - [facility] 3 10:50:33 Date Recorded Body height Body mass index (BMI) Body weight Oxygen saturation Oxygen saturation in Arterial blood by Pulse oximetry Heart rate Pain severity - 0-10 verbal numeric rating [Score] - Reported Respiratory rate Body temperature Systolic And Diastolic Provider Name and Address Organization Details Last Updated DateTime 3 162.56 cm 26.6 kg/m2 84821.8 2 g 98 % 98 % 77 /min 6 20 /min 98.3 [degF] 148/69 mm[Hg] Fransisca Sanchez PA - [facility] 3 09:51:18 Social History Question Answer Notes LastModified by Organizat ion Details LastModified Time Tobacco Smoking Status Never Smoker TITO caputo PA - [facility] 07/02/2022 10:46:55 Have You Recently Traveled Abroad? No Information not available 07/02/2022 Sex: Unknown Functional Status Question Answer Note LastModified by Organizat ion Details LastModified Time Do you use any illicit or recreational drugs? No Information not available 07/02/2022 What is your level of alcohol consumption? None Information not available 07/02/2022 Are you currently employed? No Information not available 07/02/2022 Mental Status None recorded. Family History Relationship Description Onset Age of this Age Resolved Age Notes LastModified by Organization Details LastModified Time Father Malignant neoplastic disease Not available 2022 10:47:19 Mother Malignant neoplastic disease Not available 2022 10:47:19 Mother Heart disease Not available 2022 10:47:26 Medical History No medical history recorded. Gynecological HistoryNo gynecological history recorded. Obstetrics History GPAL:G 0 P 0 0 0 0 Immunizations Vaccine Type Date Status Note Provider Nam e and Address Organization Details Recorded Time Influenza, split virus, quadrivalent, PF 9 completed TITO JAIDEN null, PA - [facility] 07/02/2022 10:44:53 pneumococcal polysaccharide PPV23 9 completed TITO JAIDEN null, PA - [facility] 07/02/2022 10:44:53 COVID-19, mRNA, LNP-S, PF, 30 mcg/0.3 mL dose 1 completed TITO JAIDEN null, PA - [facility] 07/02/2022 10:44:53 Influenza, split virus, quadrivalent, PF 1 completed TITO JAIDEN null, PA - [facility] 07/02/2022 10:44:53 COVID-19, mRNA, LNP-S, PF, 30 mcg/0.3 mL dose 1 completed TITO JAIDEN null, PA - [facility] 07/02/2022 10:44:53 Influenza, split virus, quadrivalent, PF 0 completed TITO JAIDEN null, PA - [facility] 07/02/2022 10:44:53 COVID-19, mRNA, LNP-S, PF, 100 mcg/0.5mL dose or 50 mcg/0.25mL dose completed DEVIN Granados - [facility] 07/02/2022 10:44:53 Past Encounters Encounter ID Performer Location Encounter Start Date Encounter Closed Date Diagnosis/Indication Diagnosis SNOMED-CT Code Diagnosis ICD10 Code Diagnosis IMO Codes Diagnosis Note [id number] [address] [address] [address] [place] [address] 07/27/2019 15:42:32 07/27/2019 16:38:44 [id number] [address] [place] [address] 12/27/2020 10:29:29 12/27/2020 13:02:34 [id number] [address] [place] [address] 12/13/2020 09:03:30 12/13/2020 09:49:59 [id number] [address] [place] [address] 06/18/2019 10:37:42 06/18/2019 12:08:43 [id number] [address] [place] [address] 02/14/2020 09:26:28 02/14/2020 10:26:55 [id number] [address] [place] [address] 06/01/2018 10:32:00 06/01/2018 11:13:16 [id number] [address] [place] [address] 06/07/2018 09:25:52 06/07/2018 12:10:09 [id number] [address] [place] [address] 09/14/2021 12:14:56 09/14/2021 13:28:03 [id number] [address] [place] [address] 10/04/2020 08:40:48 10/04/2020 09:20:05 [id number] [address] [facility] [place] [address] 03/11/2020 08:21:05 03/11/2020 09:04:51 [id number] DEVIN WEBER [address] [place] [address] 07/02/2022 08:17:29 07/02/2022 11:21:02 Dysuria 59463149 R30.0 Elevated blood-pressure reading without diagnosis of hypertension 458638688 R03.0 [id number] Nighat Velasco MD [address] [place] [address] 10/08/2022 08:19:26 10/08/2022 11:26:21 Right flank pain 397150960 R10.9 Right lowe r quadrant pain 759941520 R10.31 Acute urin nisa tract infection 742578886 N39.0 Health Concerns Section Related Observation LastModified by Organization Detai ls LastModified Time None Recorded Concern Status LastModified by Organization Details LastModified Time None Recorded Advance Directives Directive None Recorded Payers Insurance Date Sequence Insurance Name Policy Number Policy Smalls Covered Member ID Smalls Member ID Guarantor Name 10/08/2022 1 BHARATHI [id number] Nela Victoria [id number] Nela Victoria Notes Date Note Type Note Provider Name and Address Organization Details Recorded Time 07/02/19 23 text/htm l Urinary Complaint FemaleReported by PatientUrinary problemsFor uti symptoms, patient reportsblood in the urine,urgency, andurinary frequencybut reportsno pain in the flankandno fever/chills. For source of patient information, patient reportsinformation obtained from patient. For severity, patient reportsmild. For duration, patient reports7 days.The patient states symptoms have been going on for about a week. Use to get frequent UTI and had a bladder sling surgery in August. The patient states slight pink on the toilet paper when it started but that resolved. The patient denies any abdominal pain. No N/V/F. No flank pain. DEVIN WEBER [address] [place], [address], [place] [facility] 07/02/2022 22:35:02 10/09/19 23 text/htm l Abdominal PainReported by PatientAbdominal PainFor quality, patient reportsachingandburning. For severity, patient reportsmoderate. For onset/timing, patient reportsworse. For associated symptoms, patient reportsnauseaanddiarrheabut reportsno fever,no chills,no vomiting,no blood in the urine,no heartburn, andno shortness of breath. For source of patient information, patient reportspatientandpatient arrived at urgent care ambulatory. For location, patient reportsrlq. For context, patient reportsno travel. For modifying factors, patient reportsnothing makes it worseandnothing gives relief. For duration, (1 week).67 year old female s/p surgery one year ago for prolapsed bladder, s/p hysterectomy, hx recurrent UTI's presenting for evaluation of right flank pain radiating around to her RLQ for one week. She describes the pain as burning in nature. She has had some chronic abdominal pain since having surgery one year ago for a prolapsed bladder. She also c/o nausea, diarrhea, dysuria, urinary frequency and urgency. No fever, chills, vomiting, blood in her stool or urine. No vaginal bleeding or discharge. Nighat Velasco MD [address] [place], [address], [facility] 10/08/2022 11:26:44 OBGyn Episode No OBEpisode recorded.
== END 2025-04-25 12:24 | disposition home or self-care (01) ==
LOC: HO.HMCC 10:01
PROVIDERS: PCP Internal Medicine; Visit Provider Internal Medicine
DX: Z00.01 Encounter for general adult medical examination with abnormal findings (principal); M85.852 Other specified disorders of bone density and structure, left thigh; N95.2 Postmenopausal atrophic vaginitis; E78.2 Mixed hyperlipidemia; R53.82 Chronic fatigue, unspecified; Z71.89 Other specified counseling; F43.21 Adjustment disorder with depressed mood; Z63.4 Disappearance and death of family member; Z00.00 Encounter for general adult medical examination without abnormal findings